=== PATIENT | female | born 1955 | race Caucasian/White ===

== ENCOUNTER 2018-09-07 11:38 | Emergency (ER) | payer OTHER ==
[~2018-09-07] VITALS: Ht 160 cm; Wt 54.4 kg
[~2018-09-07 11:38] MED LIST: LEVOTHYROXIN0.025 MG PO; RED YEAST RICE600 MG PO
[2018-09-07] MEDS ORDERED: LISINOPRIL10 MG PO (11:50)
[2018-09-07 12:32] LABS: ABSOLUTE LYMPHOCYTES 1.8 thou/uL (0.8-5.3); ABSOLUTE MONOCYTES 0.5 thou/uL (0.0-1.2); ABSOLUTE NEUTROPHILS 3.8 thou/uL (1.6-8.1); BASOPHILS 0.5 %; EOSINOPHILS 0.8 %; HEMATOCRIT 36.4 % (37.0-47.0); HEMOGLOBIN 12.2 gm/dL (12.0-15.0); LYMPHOCYTES 29.8 %; MCHC 33.6 g/dL (28.0-37.0); MCV 92.2 fL (80.0-100.0); MONOCYTES 7.5 %; MPV 8.7 fl. (7.2-11.1); NUCLEATED RBCS 0 /100WBC; PLATELET COUNT* 231 thou/uL (150-400); POLYS 61.4 %; RBC 3.95 mil/uL (4.20-5.00); RDW-CV 13.1 % (10.5-14.5); WBC 6.1 thou/uL (4.0-11.0)
[2018-09-07 12:53] LABS: ANION GAP 10 mmol/L (7-16); BUN 19 mg/dL (7-18); CALCIUM 9.4 mg/dL (8.5-10.1); CHLORIDE 104 mmol/L (98-107); CO2 28 mmol/L (21-32); CREATININE 0.9 mg/dL (0.6-1.3); GLUCOSE 87 mg/dL (70-99); POTASSIUM 4.1 mmol/L (3.5-5.1); SODIUM 142 mmol/L (136-145)
[2018-09-07 12:59] LABS: ALBUMIN 3.8 g/dL (3.4-5.0); ALKALINE PHOSPHATASE 87 U/L (46-116); NT-PRO BRAIN NAT PEPTIDE 112 pg/mL (<300); SGOT 21 U/L (15-37); SGPT 21 U/L (30-65); TOTAL BILIRUBIN 0.4 mg/dL (<0.1-1.0); TOTAL PROTEIN 7.4 g/dL (6.4-8.2); TROPONIN-I LEVEL <0.06 ng/mL (<0.06)
[2018-09-07] MEDS ORDERED: ATIVAN0.5 MG PO (13:03)
[2018-09-07 13:45] VITALS: BP 131/68
--- NOTE | 2018-09-08 09:41 | EKG ---
[place] [address] ELECTROCARDIOGRAM REPORT Name: RASHEED JONES Room: [facility]#: [id number] Admission: 09/07/18 Attend Phys: Discharge: 09/07/18 Date of : 59 Report #: [id number] THIS REPORT FOR: //name// [facility] ED Test Date: 2018-09-07 Test Time: 12:00:09 Pat Name: RASHEED JONES Department: Room: Gender: [employer]: : [id number] Requested By: Sal[place] Samayoa Order Number: [id number] MD: Jorge Russell Measurements Intervals [place] Rate: 60 P: 54 MA: 160 QRS: 51 QRSD: 89 T: 40 QT: 428 QTc: 428 Interpretive Statements Sinus rhythm Ventricular premature complex Compared to ECG 05/15/2015 08:30:28 Ventricular premature complex(es) now present Electronically Signed On 09-08-2018 9:41:20 CDT by Jorge Russell [email or web address] <ELECTRONICALLY SIGNED> By: Jorge Russell MD, [facility] 09/08/18 0941 1200 1200 Jorge Russell MD, FAC /EPI
== END 2018-09-07 13:46 | disposition home or self-care (01) ==
LOC: M.ERS 11:38
PROVIDERS: Emergency Medicine
DX: F41.9 Anxiety disorder, unspecified (principal); E78.00 Pure hypercholesterolemia, unspecified; E07.9 Disorder of thyroid, unspecified

== ENCOUNTER → 2019-01-04 | Outpatient (CLI) | payer OTHER ==
[~2019-01-04] MED LIST changes: +ATIVAN0.5 MG PO; +LISINOPRIL10 MG PO
== END ==
LOC: M.RAD 15:35
DX: Z12.31 Encounter for screening mammogram for malignant neoplasm of breast (principal); M85.89 Other specified disorders of bone density and structure, multiple sites; Z78.0 Asymptomatic menopausal state

== ENCOUNTER → 2019-01-17 | Outpatient (CLI) | payer OTHER | LOC: M.RAD 15:47 | DX: R06.02 Shortness of breath (principal); R91.1 Solitary pulmonary nodule ==

== ENCOUNTER → 2020-03-11 | Outpatient (CLI) | payer OTHER ==
[2020-03-11 10:18] LABS: CREATININE 0.8 mg/dL (0.6-1.3)
== END ==
LOC: M.LAB 09:52 → M.CT 11:00
PROVIDERS: ATTEND Surgery
DX: K92.1 Melena (principal); R10.10 Upper abdominal pain, unspecified